=== PATIENT | male | born 1965 | race Caucasian/White ===

== ENCOUNTER 2022-02-08 15:53 | Emergency (ER) | payer SELFPAY ==
--- NOTE | 2022-02-08 16:23 | ECG_ITS ---
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 Measurements Intervals [place] Rate: 83 P: 86 CA: 165 QRS: 69 QRSD: 81 T: 74 QT: 339 QTc: 400 Interpretive Statements SINUS RHYTHM INTERPRETATION BASED ON A DEFAULT AGE OF 40 YEARS No previous ECG available for comparison Electronically Signed On 02-08-2022 18:00:05 CDT by Zena Waters M.D. [id number]
[2022-02-08 16:51] VITALS: BP 130/79; PULSE 86; RESP 16; TEMP 36.6; O2SAT 98; BMI 24.4
== END 2022-02-08 20:25 | disposition left against medical advice (07) ==
PROVIDERS: Emergency Provider Family Medicine; PCP Family Medicine
DX: Z53.21 Procedure and treatment not carried out due to patient leaving prior to being seen by health care provider (principal)
CPT/HCPCS: 93005

== ENCOUNTER 2022-09-06 09:31 | Emergency (ER) | payer SELFPAY ==
[2022-09-06 09:39] VITALS: BP 170/107; PULSE 75; RESP 19; TEMP 36.4; O2SAT 98; BMI 24.4
--- NOTE | 2022-09-06 09:47 | CT_ITS ---
WS: [id number] CT FACIAL BONES TECHNIQUE: Noncontrast facial bones with coronal and sagittal reformatted images. CLINICAL INFORMATION: R mandibular swelling, eval deep infection/abscess COMPARISON: None. DLP: 606.[address] scans at [facility] use at least one of these dose optimization techniques: automated e xposure control; mA and/or kV adjustment per patient size (includes targeted exams where dose is matc hed to clinical indication); or iterative reconstruction. FINDINGS: No evidence of mandibular fracture or dislocation. Inflammatory stranding and edema overlying the RIG HT mandible with soft tissue induration compatible with cellulitis. No evidence of drainable abscess or fluid collection. Reactive RIGHT greater than LEFT associated lymph nodes. No evidence of osteomye litis. Lucency involving multiple mandibular teeth. Consider odontogenic origin. Mild mucosal thickening in the paranasal sinuses. Retention cyst LEFT maxillary sinus. Normal computer publisher ior nasopharynx. CT/CT facial bones wo con* [id number] IMPRESSION: 1. No evidence of drainable abscess or fluid collection. 2. Soft tissue induration compatible with cellulitis overlying the RIGHT evelyn ble. Reactive RIGHT greater than LEFT lymph nodes. This may be odontogenic in o rigin. No evidence of mandibular osteomyelitis. 3. No evidence of mandibular fracture or dislocation.
--- NOTE | 2022-09-06 09:47 | W.ED.DENTAL ---
HPI - Dental/Oral General: Chief complaint: Dental/Oral Stated complaint: tooth abscess Time Seen by Provider: 09/06/22 09:40 History of Present Illness: Mr Garcias is a 57-year-old gentleman with history of poor dentition and dental caries presenting to the emergency department due to pain and right mandibular swelling. He notes eating something approximately 1 week ago and having some pain initially. Subsequently he had increased pain and tried cephalexin as well as ampicillin fish antibiotics which have failed to improve. Starting yesterday noticed increased jaw swelling which has since worsened. Moderate to severe intensity pain. Denies signs of systemic illness. No difficulty tolerating oral secretions or shortness of breath. No other specific changes in health, exacerbating, or alleviating factors identified. Onset (ago): day(s) Duration: worsening Severity: moderate Review of Systems General: Reports: 10 or more systems reviewed and unremarkable except in HPI and below Physical Exam Const: COMMON NORMALS: alert GENERAL APPEARANCE: cooperative and well developed HENMT: COMMON NORMALS: normocephalic and atraumatic HEAD & SCALP: normocephalic and atraumatic THROAT: posterior oropharynx normal OTHER: Multiple missing teeth and dental caries. Soft tissue swelling is present but no evidence of deep tissue infection of the posterior pharynx, anatomy alignment is normal. Eye: COMMON NORMALS: conjunctivae normal CONJUNCTIVA: Yes conjunctivae normal SCLERA: sclerae normal Neck/C-Spine: COMMON NORMALS: supple GENERAL: Yes trachea midline Resp: COMMON NORMALS: normal respiratory effort EFFORT & INSPECTION: Yes able to speak in complete sentences Cardio: COMMON NORMALS: regular rate and regular rhythm RATE: regular rate RHYTHM: regular rhythm GI: COMMON NORMALS: Soft to palpation PALPATION: Yes Soft to palpation and No Tenderness to palpation present (GI) Extremity: GENERAL: Yes normal exam except as noted and No edema Neuro: COMMON NORMALS: moves all extremities SENSORIUM/ORIENTATION: Yes alert and No Orientation impaired Psych: COMMON NORMALS: mental status grossly normal and Normal thought process present THOUGHT PROCESS: Normal thought process present Course Vital Signs: Vital signs: Vital Signs Temperature 97.6 F 09/06/22 09:39 Pulse Rate 90 09/06/22 12:08 Respiratory Rate 18 09/06/22 12:08 Blood Pressure 138/107 09/06/22 12:08 Pulse Oximetry 98 09/06/22 12:08 Oxygen Delivery Me thod Room Air 09/06/22 11:02 MDM - Dental/Oral Medical Decision Making 57-year-old gentleman presenting with dental concerns. He tried fish antibiotics without significant improvement that likely was taking less than ideal dosage. 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 Patient is nontoxic. Given clinical exam findings CT is appropriate and negative for abscess. Patient treated with analgesia and local anesthesia. Antibiotic given. The results of ED evaluation were discussed with the patient including prescriptions and/or symptomatic cares (if applicable) including appropriate and responsible use, followup plan, and return precautions. The patient verbalized understanding and felt safe for discharge. Medical Records I reviewed the patient's medical records. Lab Data I reviewed the patient's lab results. Radiology Impressions Face CT 09/06/22 09:47 IMPRESSION: 1. No evidence of drainable abscess or fluid collection. 2. Soft tissue induration compatible with cellulitis overlying the RIGHT mandible. Reactive RIGHT greater than LEFT lymph nodes. This may be odontogenic in origin. No evidence of mandibular osteomyelitis. 3. No evidence of mandibular fracture or dislocation. Discharge Plan Discharge Patient Disposition: Home Clinical Impression: Toothache, Dental caries, Facial cellulitis Condition: Stable Prescriptions: New oxycodone 5 mg tablet 5 mg PO Q4H PRN (Reason: pain) Qty: 10 0RF Discharge Orders: Discharge ED (Routine); Ordered 09/06/22 Ordered By: Johnny Portillo Referrals: Stef Foy MD [Primary Care Provider] - Discharge Diet: Usual diet Discharge Activity: Increase activity as tolerated Patient Instructions: Dental Caries (Cavities), Cellulitis (ED), Opioid Safety Activity Restrictions/Additional Instructions: Thank you for visiting the emergency department. You are seen evaluated for facial pain and swelling. The most likely cause of your symptoms is cellulitis which is infection of the soft tissue related to poor dentition and dental infection. You may use [id number]-[id number] medications such as acetaminophen and ibuprofen for pain however please do not exceed the daily recommended dosage as listed on the packaging and please keep in mind that many namebrand medications contain the same active ingredients. Please avoid these medications if previously instructed to do so by another physician due to other underlying medical condition. I will also prescribe oxycodone, use this cautiously as it is an opioid. I will prescribe antibiotics. Follow-up with a dentist. Return to the emergency department for worsening symptoms, inability to swallow, shortness of breath, or anything else that you are concerned about and feel needs emergency room evaluation. Coding Level of Care Code ED Gift Shop Manager for Nain Ortiz
[2022-09-06] MEDS: morphine 4 mg/mL SDV 1 mL IM (09:55)
[2022-09-06 11:02] VITALS: BP 164/100; PULSE 62; RESP 18; O2SAT 99
[2022-09-06] MEDS: HYDROcodone-acetaminophen 5-325 mg Tablet 1 TAB PO (11:41)
[2022-09-06] MEDS: ketorolac 30 mg/mL INJ IM (11:41)
[2022-09-06] MEDS: clindamycin 150 mg Capsule 450 MG PO (12:01)
[2022-09-06 12:08] VITALS: BP 138/107; PULSE 90; RESP 18; O2SAT 98
== END 2022-09-06 12:13 | disposition home or self-care (01) ==
PROVIDERS: Emergency Provider Emergency Medicine; PCP Family Medicine
DX: K02.9 Dental caries, unspecified (principal); L03.211 Cellulitis of face
CPT/HCPCS: 70486; 96372; 99284; J1885; J2270; J3490

== ENCOUNTER 2023-09-01 18:29 | Emergency (ER) | payer SELFPAY ==
[2023-09-01 18:33] VITALS: BP 121/61; PULSE 110; RESP 18; TEMP 36.6; O2SAT 93
--- NOTE | 2023-09-01 18:39 | W.ED.SKABFB ---
HPI - Skin/Abscess/Foreign Bdy General: Chief complaint: Skin/Abscess/Foreign Body Stated complaint: tick bite/ rash Time Seen by Provider: 09/01/23 18:39 History of Present Illness: 58-year-old male patient comes in today for concerns of a tick bite to the left chest wall. Patient reports surrounding erythema and tenderness. Patient reports is not as obvious now due to being out in the sun today and having a sunburn. Patient appears nontoxic. Patient denies any chronic medical problems. Review of Systems General: Reports: 10 or more systems reviewed and unremarkable except in HPI and below Physical Exam HENMT: COMMON NORMALS: normocephalic HEAD & SCALP: normocephalic Neck/C-Spine: COMMON NORMALS: full ROM Resp: COMMON NORMALS: normal respiratory effort Cardio: COMMON NORMALS: regular rate RATE: regular rate Back/Pelvis: COMMON NORMALS: thoracic and lumbar spine normal to inspection Extremity: COMMON NORMALS: normal to inspection Skin: NARRATIVE SKIN EXAM: Patient has a sunburn that is noticed to his anterior and dorsal chest wall. Patient does have a punctate lesion to his left chest wall. Patient does have some mild erythema surrounding approximately 3 cm. No induration. Course Vital Signs: Vital signs: Vital Signs Temperature 98 F 09/01/23 18:33 Pulse Rate 110 H 09/01/23 18:33 Respiratory Rate 18 09/01/23 18:33 Blood Pressure 121/61 09/01/23 18:33 Pulse Oximetry 93 09/01/23 18:33 Oxygen Delivery Me thod Room Air 09/01/23 18:33 MDM - Skin/Abscess/Foreign Bdy Medicial Decision Making Patient comes in today for concerns of tick bite with surrounding redness. Patient reports that this is abnormal for him and his tick bites. Patient is concerned for infection. On exam patient moves all extremities well. Skin is warm and dry. Patient does have a punctate lesion with area of redness surrounding it with minimal to no induration. Differential diagnosis includes cellulitis, infected insect bite, local reaction insect bite. Will go ahead and cover patient with doxycycline for common tickborne illnesses for the area. Patient reports understanding of care plan. Patient was made aware that doxycycline can increase photosensitivity. Patient agreed to plan and need for follow-up or return to the ER. No radiology studies performed this visit Discharge Plan Discharge Patient Disposition: Home Clinical Impression: Tick bite of chest wall Qualifiers: Encounter type: initial encounter Laterality: left Qualified Code(s): S20.362A - Insect bite (nonvenomous) of left front wall of thorax, initial encounter Condition: Stable Prescriptions: New doxycycline hyclate 100 mg tablet 100 mg PO BID 7 Days Qty: 14 0RF No Action oxycodone 5 mg tablet 5 mg PO Q4H PRN (Reason: pain) Qty: 10 0RF Discharge Orders: Discharge ED (Routine); Ordered 09/01/23 Ordered By: Michael Feldman Referrals: Stef Foy MD [Primary Care Provider] - Discharge Diet: Usual diet Discharge Activity: Increase activity as tolerated Patient Instructions: Tick Bite (ED) Activity Restrictions/Additional Instructions: Take medications as directed. Drink plenty water and fluids. Follow-up with primary care in 1 week for recheck. The antibiotic may make you more sensitive to the sun so be careful being out in direct sunlight as you may burn or develop a rash. Follow-up with primary care. Return to ED for new concerns. Coding Level of Care Code ED General Manager Land Department for Nain Ortiz
[2023-09-01] MEDS: doxycycline 100 mg Tablet PO (18:50)
== END 2023-09-01 18:51 | disposition home or self-care (01) ==
PROVIDERS: Emergency Provider Nurse Practitioner Family; PCP Family Medicine
DX: S20.362A Insect bite (nonvenomous) of left front wall of thorax, initial encounter (principal); W57.XXXA Bitten or stung by nonvenomous insect and other nonvenomous arthropods, initial encounter; L55.9 Sunburn, unspecified
CPT/HCPCS: 99283

== ENCOUNTER 2024-07-29 20:43 | Emergency (ER) | payer SELFPAY ==
[2024-07-29 20:48] VITALS: BP 144/80; PULSE 115; TEMP 36.9; O2SAT 96; BMI 24.4
[2024-07-29 22:45] VITALS: BP 126/87; PULSE 100; O2SAT 97
[2024-07-29 22:45] LABS: Basophils # 0.1 10^3/uL (0.0-0.1); Basophils % 1.2 %; Eosinophils # 0.4 10^3/uL (0.0-0.8); Eosinophils % 5.6 %; Hematocrit 41.3 % (37-53); Lymphocytes # 2.4 10^3/uL (0.8-4.8); Lymphocytes % 34.9 %; Mean Corpuscular HGB Conc 33.7 g/dL (30-55); Mean Corpuscular Hemoglobin 30.8 pg (27-33); Mean Corpuscular Volume 91.4 fl (82-101); Mean Platelet Volume 8.9 fL (7.4-10.4); Monocytes # 0.8 10^3/uL (0.2-0.9); Neutrophils # 3.08 10^3/uL (1.8-7.7); Neutrophils % 45.9 %; Nucleated Red Blood Cells % 0 %; Platelet Count 205 10^3/cmm (157-399); Red Blood Count 4.52 10^6/uL (3.85-5.65); Red Cell Distribution Width 12.9 % (12.1-15.1); White Blood Count 6.73 10^3/uL (3.29-11.43)
[2024-07-29 22:48] LABS: Bilirubin Urine Negative (Negative); Blood Urine Negative (Negative); Glucose Urine UA Negative (Normal); Ketones Urine Negative (Negative); Leukocyte Esterase Urine Negative (Negative); Nitrate Urine Negative (Negative); Protein Urine Negative (Negative); Urine Appearance Clear (CLEAR); Urine Color Dark Yellow (Yellow)
[2024-07-29 22:50] LABS: Add Urine Microscopic? YES; Bacteria Urine None Seen /hpf; RBC Urine 0-2 /hpf (0-2); Squamous Epithelial Cell Urine 0-5 /hpf (0-5); WBC Urine 0-5 /hpf (0-5)
--- NOTE | 2024-07-29 22:50 | CTR_ITS ---
PROCEDURE INFORMATION: Exam: CT Abdomen And Pelvis With Contrast Exam date and time: 07/29/2024 11:09 PM Age: 59 years old Clinical indication: Abdominal pain; Tenderness; Left lower quadrant (llq); Additional info: New suspected midline hernia, difficult to reduce TECHNIQUE: Imaging protocol: Computed tomography of the abdomen and pelvis with contrast. Radiation optimization: All CT scans at this facility use at least one of these dose optimization techniques: automated exposure control; mA and/or kV adjustment per patient size (includes targeted exams where dose is matched to clinical indication); or iterative reconstruction. Contrast material: OMNI 350; Contrast volume: 100 ml; Contrast route: INTRAVENOUS (IV); COMPARISON: No relevant prior studies available. RADIATION DOSE METRICS: Total DLP (mGy-cm): 428.9 FINDINGS: Lungs: Emphysema and bronchial wall thickening noted at each lung base. No airspace opacity. Pleural spaces: No pleural fluid or pneumothorax. Heart: Heart size is normal. Liver: There is a tiny low-attenuation focus in the posterior segment right hepatic lobe which is too small to fully characterize. There is a small cyst in the caudal aspect of the posterior segment right hepatic lobe. No suspicious liver mass. Gallbladder and biliary ducts: Contracted postprandial gallbladder. No regional inflammation. No calcified stones. No ductal dilation. Pancreas: No pancreatic edema or visible mass. Spleen: Normal. No splenomegaly. Adrenal glands: Normal configuration. Kidneys and ureters: 1 mm left intrarenal calculus. No evidence of obstruction. No visible inflammation or solid mass. Stomach and bowel: Unremarkable. No obstruction. No mural thickening. Appendix: Normal appendix is in a retrocecal position. Intraperitoneal space: No free air. No significant fluid collection. Vasculature: Moderate aortoiliac calcific atherosclerosis without aneurysm. Normal psoas margins. Lymph nodes: No enlarged lymph nodes. Urinary bladder: Unremarkable as visualized. Reproductive: There is bright asymmetric enhancement of the right spermatic cord. Bones/joints: No fracture or destructive lesion. There is advanced multilevel degenerative disc disease with mild facet arthropathy. Adequate spinal canal. Mild sacroiliac osteoarthritis. Soft tissues: There is considerable edema involving the umbilicus. Adjacent to the area of edema, there is a tiny umbilical hernia with neck measuring [address]/CT abdomen pelvis w con* [id number] IMPRESSION: 1. There is considerable edema involving the umbilicus, but only a very tiny adjacent fat containing hernia noted. Appearance is otherwise most compelling for cellulitis. 2. There is abnormal asymmetric enhancement of the right spermatic cord which is concerning for pathology of the right scrotal contents. Consider scrotal ultrasound for further evaluation.
--- NOTE | 2024-07-29 22:52 | ED_ITS ---
HPI - Abdominal Pain 2 General: Chief Complaint: Abdominal Pain Stated Complaint: knot above belly button possible tore something Time Seen by Provider: 07/29/24 22:43 History of Present Illness: Patient is a generally well-appearing 59-year-old male with no history of abdominal surgeries seen for midline abdominal pain and a palpable lump in the midline above his umbilicus which he first noticed 3 days ago after lifting a very heavy tractor tire. He states the pain is 2 of 10 at rest, 6 of 10 with exertion or pressing on it. His work is very physical and he notices the pain anytime he laughs or moves. He has never had a hernia before. Related Data Previous Rx's ?Medication ?Instructions ?Recorded oxycodone 5 mg tablet 5 mg PO Q4H PRN pain #10 tab s 09/06/22 Allergies Allergy/AdvReac Type Severity Reaction Status Date / Time No Known Allergies Allergy Verified 07/29/24 20:51 Physical Exam 2 Const: COMMON NORMALS: no acute distress, patient oriented x3 and alert HENMT: COMMON NORMALS: normocephalic and atraumatic HEAD & SCALP: n ormocephalic and atraumatic Eye: COMMON NORMALS: Equal, round and reactive pupils present, EOMs intact bilaterally and no scleral icterus PUPIL: Yes Equal, round and reactive pupils present Resp: COMMON NORMALS: normal respiratory effort and No retractions Cardio: COMMON NORMALS: regular rate, regular rhythm and No murmurs present (Cardio) RATE: regular rate RHYTHM: regular rhythm GI: COMMON NORMALS: Normal to inspection, nondistended, normoactive bowel sounds present, Soft to palpation and non-tender PALPATION: Yes Soft to palpation OTHER: 2 cm circular, firm, midline, mobile lum p just above the umbilicus concerning for midline hernia. Gentle manual reduction was attempted for roughly 2 minutes with feeling of partial resolution of hernia. Neuro: COMMON NORMALS: patient oriented x3 SENSORIUM/ORIENTATION: Yes alert Skin: COMMON NORMALS: no rashes or lesions noted GENERAL SKIN EXAM: no rashes or lesions noted Course 2 Vital Signs: Vital signs: Vital Signs Temperature 98.4 F 07/29/24 20:48 Pulse Rate 81 07/30/24 00:53 Blood Pressure 121/88 07/30/24 00:53 Pulse Oximetry 95 07/30/24 00:53 Oxygen Delivery Me thod Room Air 07/30/24 00:30 MDM - Abdominal Pain Medical Decision Making In summary, patient is a generally well-appearing 59-year-old male seen for midline abdominal pain. CT scan shows a fat containing midline abdominal hernia. Lactic acid is not elevated and he has no evidence of bowel obstruction. He will be discharged in stable and improved condition with follow-up to general surgery should pain persist to consider whether surgical intervention is warranted. He shows good understanding and agrees to the plan. Lab Data 07/29/24 22:29 07/29/24 22:29 Labs/Radiology: Radiology Impressions Abdomen/Pelvis CT 07/29/24 22:50 IMPRESSION: 1. There is considerable edema involving the umbilicus, but only a very tiny adjacent fat containing hernia noted. Appearance is otherwise most compelling for cellulitis. 2. There is abnormal asymmetric enhancement of the right spermatic cord which is concerning for pathology of the right scrotal contents. Consider scrotal ultrasound for further evaluation. Laboratory Results WBC 6.73 10^3/uL (3.29-11.43) 07/29/24 22: RBC 4.52 10^6/uL (3.85-5.65) 07/29/24: Hgb 13.90 g/dL (11.27-16.99) 07/29/24: Hct 41.3 % (37-53) 07/29/24: MCV 91.4 fl (82-101) 07/29/24: MCH 30.8 pg (27-33) 07/29/24: MCHC 33.7 g/dL (30-55) 07/29/24: RDW 12.9 % (12.1-15.1) 07/29/24: Plt Count 205 10^3/cmm (157-399) 07/29/24: MPV 8.9 fL (7.4-10.4) 07/29/24: Neut % (Auto) 45.9 % 07/29/24: Lymph % (Auto) 34.9 % 07/29/24: [place] % (Auto) 12.0 % 07/29/24: Eos % (Auto) 5.6 % 07/29/24: Baso % (Auto) 1.2 % 07/29/24: Neut # (Auto) 3.08 10^3/uL (1.8-7.7) 07/29/24: Lymph # (Auto) 2.4 10^3/uL (0.8-4.8) 07/29/24: [place] # (Auto) 0.8 10^3/uL (0.2-0.9) 07/29/24: Eos # (Auto) 0.4 10^3/uL (0.0-0.8) 07/29/24: Baso # (Auto) 0.1 10^3/uL (0.0-0.1) 07/29/24: Nucleated RBC % (auto) 0 % 07/29/24 Nucleated RBCs # 0.0 /100WBC 07/29/24: Sodium 138 mmol/L (136-145) 07/29/24: Potassium 4.2 mmol/L (3.5-5.1) 07/29/24: Chloride 103 mmol/L (98-107) 07/29/24: Carbon Dioxide 23 mmol/L (22-29) 07/29/24: Anion Gap 16.2 (5-19) 07/29/24: BUN 15 mg/dL (6-20) 07/29/24: Creatinine 0.8 mg/dL (0.7-1.2) 07/29/24 GFR Calculation 98.9 mL/min (90-130) 07/29/24: Glucose 92 mg/dL (65-115) 07/29/24: Calculated Osmolality 286 mOsm/kg (285-295) 07/29/24: Lactic Acid 0.6 mmol/L (0.5-2.2) 07/29/24: Calcium 9.0 mg/dL (8.5-10.5) 07/29/24: Total Bilirubin 0.5 mg/dL (0.15-1.2) 07/29/24: AST 46 U/L (0-40) H 07/29/24: ALT 57 U/L (0-41) H 07/29/24 22:29 Alkaline Phosphatase 78 U/L (40-130) 07/29/24 22:29 Total Protein 8.1 g/dL (6.6-8.7) 07/29/24 22: Albumin 4.1 g/dL (3.5-5.2) 07/29/24 22: Globulin 4.0 g/dL (1.3-4.6) 07/29/24 22:29 Urine Color Dark yellow (Yellow) A 07/29/24 22:39 Urine Appearance Clear (CLEAR) 07/29/24 22:39 Urine pH 6.0 (5-7) 07/29/24 22:39 Ur Specific [place] 1.030 (1.005-1.030) 07/29/24 22:39 Urine Protein Negative (Negative) 07/29/24 22:39 Urine Glucose (UA) Negative (Normal) 07/29/24 22:39 Urine Ketones Negative (Negative) 07/29/24 22:39 Urine Blood Negative (Negative) 07/29/24 22:39 Urine Nitrate Negative (Negative) 07/29/24 22:39 Urine Bilirubin Negative (Negative) 07/29/24 22:39 Urine Urobilinogen 1.0 mg/dL (Negative) 07/29/24 22:39 Ur Leukocyte Esterase Negative (Negative) 07/29/24 22:39 Urine RBC 0-2 /hpf (0-2) 07/29/24 22:39 Urine WBC 0-5 /hpf (0-5) 07/29/24 22:39 Ur Squamous Epith Cells 0-5 /hpf (0-5) 07/29/24 22:39 Amorphous Sediment Not Reportable 07/29/24 22:39 Urine Bacteria None seen /hpf (NONE) 07/29/24 22:39 Hyaline Casts 0.40 /lpf 07/29/24 22:39 All radiology interpretation(s) finalized by discharge Discharge Plan Discharge Patient Disposition: Home Clinical Impression: Fatty hernia of [place] Condition: Stable Prescriptions: No Action oxycodone 5 mg tablet 5 mg PO Q4H PRN (Reason: pain) Qty: 10 0RF Discharge Orders: Discharge ED (Routine); Ordered 07/30/24 Ordered By: Dom Castro Referrals: Stef Foy MD [Primary Care Provider] - Discharge Diet: Usual diet Discharge Activity: Resume usual activity Patient Instructions: Abdominal Hernia Activity Restrictions/Additional Instructions: CT scan shows a small amount of fat protruding through your abdominal wall. This is a fat-containing midline abdominal hernia. Oftentimes the symptoms of this will go away spontaneously. If the pain persists please follow-up with a general surgeon to see if elective surgical repair is warranted. Print Language: Spanish Coding Level of Care Code ED Manager Dialysis for Nain Ortiz
[2024-07-29 23:00] VITALS: BP 115/74; PULSE 98; O2SAT 95
[2024-07-29 23:03] LABS: Alanine Aminotransferase 57 U/L (0-41); Albumin Level 4.1 g/dL (3.5-5.2); Alkaline Phosphatase 78 U/L (40-130); Anion Gap 16.2 (5-19); Aspartate Amino Transferase 46 U/L (0-40); Blood Urea Nitrogen 15 mg/dL (6-20); Carbon Dioxide 23 mmol/L (22-29); Chloride 103 mmol/L (98-107); Creatinine Clr Calc Pharmacy 111.4014; Glomerular Filtration Rate 98.9 mL/min (90-130); Glucose 92 mg/dL (65-115); Osmolality Calculated 286 mOsm/kg (285-295); Potassium 4.2 mmol/L (3.5-5.1); Sodium 138 mmol/L (136-145); Total Bilirubin 0.5 mg/dL (0.15-1.2); Total Protein 8.1 g/dL (6.6-8.7)
[2024-07-29 23:08] LABS: Lactic Sepsis W/Reflex 0.6 mmol/L (0.5-2.2)
[2024-07-29] MEDS: iohexol 350 mg/mL 500 mL Btl (per mL) IV (23:12)
[2024-07-29 23:30] VITALS: BP 117/76; PULSE 89; O2SAT 94
[2024-07-30] VITALS: BP 117/80; PULSE 89; O2SAT 94
[2024-07-30 00:30] VITALS: BP 116/83; PULSE 89; O2SAT 98
[2024-07-30 00:53] VITALS: BP 121/88; PULSE 81; O2SAT 95
--- NOTE | 2024-07-30 08:03 | DCPLANNER ---
messaged gen surg for er f/u
== END 2024-07-30 00:59 | disposition home or self-care (01) ==
PROVIDERS: Emergency Provider Student in an Organized Health Care Education/Training Program; PCP Family Medicine
DX: K43.9 Ventral hernia without obstruction or gangrene (principal)
CPT/HCPCS: 36415; 74177; 80053; 81001; 83605; 85025; 99285